=== PATIENT | female | born 1975 ===

== ENCOUNTER 2017-06-27 10:28 | Outpatient (CLI) | payer OTHER | END 2017-06-27 14:51 | disposition home or self-care (01) | LOC: TOM 10:28 | DX: G44.019 Episodic cluster headache, not intractable (principal) ==

== ENCOUNTER 2017-07-31 07:37 | Day surgery (SDC) | payer OTHER | END 2017-07-31 13:15 | disposition home or self-care (01) | LOC: AMB-ENDOS 07:37 | DX: K64.0 First degree hemorrhoids (principal) ==